=== PATIENT | female | born 1985 | race Caucasian/White ===

== ENCOUNTER 2017-03-31 14:26 | Emergency (ER) | payer SELFPAY ==
[~2017-03-31] VITALS: Ht 157.5 cm; Wt 53.9 kg
--- OUTSIDE RECORDS SUMMARY | 2017-03-31 14:29 | XMS REPORT | Continuity of Care Document ---
Author Author [facility] Address Unknown Phone Unavailable Allergies Medications Problems Procedures Results Encounters ACCT No. Visit Date/Time Discharge Status Pt. Type Provider Facility Loc./Unit Complaint [id number] 05/14/2014 02:00:00 2013 23:59:59 CLS Outpatient [id number] 03/31/2017 14:26:00 PEN Emergency ARCHULETA SONIA FELIPE [facility] ED
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
[2017-03-31] MEDS ORDERED: TETANUS, DIPTHERIA, PERTUSSIS (ADACELL) VACCINE 0.5 ML VIAL IM ONE (14:40)
[2017-03-31] MEDS ORDERED: BACITRACIN OINTMENT 0.9 GM PACKET TOP ONE (14:40)
[2017-03-31] MEDS ORDERED: AMOX1TAB12 PO (14:49)
[2017-03-31] MEDS ORDERED: HYDR-3702 PO (14:49)
[2017-03-31 15:41] VITALS: BP 125/59
== END 2017-03-31 15:40 | disposition home or self-care (01) ==
LOC: ED 14:28
DX: S41.152A Open bite of left upper arm, initial encounter (principal); W54.0XXA Bitten by dog, initial encounter; Y93.89 Activity, other specified; Y92.007 Garden or yard of unspecified non-institutional (private) residence as the place of occurrence of the external cause
CPT/HCPCS: 90471; 90715; 99282; 99283